=== PATIENT | female | born 1990 | race Caucasian/White ===

== ENCOUNTER → 2016-05-03 | Outpatient (CLI) | payer MEDICAID ==
[2016-05-03 13:24] LABS: BASO % 0.4 % (0.0-1.0); EOS # 0.1 K/mm3 (0.0-0.50); EOS % 1.9 % (0.0-3.0); LARGE UNSTAINED CELL # 0.1 K/mm3 (0.0-0.4); LARGE UNSTAINED CELL % 0.8 % (0.0-4.0); LYMPH # 1.3 K/mm3 (1.5-6.5); LYMPH % 18.9 % (24.0-44.0); MEAN CORPUSCULAR HEMOGLOBIN 29.5 pg (27.0-33.0); MEAN CORPUSCULAR HGB CONC 33.1 g/dl (32.0-36.5); MEAN CORPUSCULAR VOLUME 89.1 fl (80.0-96.0); MONO # 0.3 K/mm3 (0.0-0.8); MONO % 4.7 % (0.0-5.0); NEUTROPHILS % 73.3 % (36.0-66.0); PLATELET COUNT, AUTOMATED 197 k/mm3 (150-450); RED CELL DISTRIBUTION WIDTH 12.4 % (11.5-14.5); WHITE BLOOD COUNT 6.9 K/mm3 (4.0-10.0)
[2016-05-03 13:50] LABS: HBsAg Prenatal NEGATIVE (NEGATIVE)
[2016-05-03 14:16] LABS: CONTROL LINE INT CTR LINE PRESENT; HIV SCRN NEGATIVE (NEGATIVE); HIV SCRN1 NEGATIVE (NEGATIVE)
== END ==
LOC: M SMT 11:00
PROVIDERS: ATTEND Advanced Practice Midwife
DX: Z34.81 Encounter for supervision of other normal pregnancy, first trimester (principal)

== ENCOUNTER → 2016-07-25 | Outpatient (CLI) | payer MEDICAID ==
--- NOTE | 2016-07-25 18:39 | REP ---
Obstetric sonography: History: Supervision of for anatomy. Findings: Scanning through the gravid uterus demonstrates a viable single intrauterine gestation in a cephalic lie. motion is observed and heart rate is recorded at 144 beats per minute. A right lateral placenta is seen grade zero without evidence of previa or abruption. Amniotic fluid is subjectively normal. Closed cervical length is measured at 3.3 cm transabdominally. No extrauterine abnormality is observed. There is mild bilateral renal pyelectasis, AP dimension of the renal pelves 1-2 mm, within normal limits. There is less than optimal visualization of the cavum, cerebellum posterior fossa, face and profile, left and right ventricular outflow tracts and spine due to position. There is an echogenic focus in the left ventricle likely chordae tendineae. Four-chamber heart view is otherwise unremarkable. The following additional anatomic structures are identified and felt to be unremarkable today: cranium, choroid plexus, lungs, diaphragm, left-sided stomach, abdominal wall cord insertion, three-vessel umbilical cord, urinary bladder, upper and lower extremities. Biometry chart: BPD 4.5 cm = 19 weeks 5 days Head circumference 16.8 cm = 19 weeks 3 days Abdominal circumference 14.1 cm = 19 weeks 4 days Femur length 3.1 cm = 19 weeks 4 days Humeral length 2.9 cm = 19 weeks 4 days HC/AC ratio normal 1.19, cephalic index normal 0.75, estimated weight 297 grams 0 pounds 10 ounces 52nd percentile for 19 weeks 2 days. Impression: 1. Viable single intrauterine gestation of 19 weeks 2 days by today's composite sonographic criteria. GALLITO by today's sonography 12/17/2016. 2. anatomic survey less than complete regarding heart, face, cerebellum posterior fossa, and spine. Signed by Popeye Duran MD 07/26/2016 08:06 A
== END ==
LOC: M SMT 13:56
PROVIDERS: ATTEND Advanced Practice Midwife
DX: Z36 Encounter for antenatal screening of mother (principal); Z3A.19 19 weeks gestation of pregnancy

== ENCOUNTER → 2016-09-12 | Outpatient (CLI) | payer OTHER ==
--- NOTE | 2016-09-12 15:46 | REP ---
Obstetric ultrasound for anatomy: There is a single intrauterine gestation in a breech presentation. There is movement and cardiac activity. heart rate is 141 beats per minute. The placenta is right lateral without previa or abruptio and demonstrates grade 1 maturity. The amniotic fluid volume subjectively is normal. The cervix is 4.6 cm in length. Based on today's ultrasound the gestational age 25 weeks 3 days with an GALLITO of 12/23/2016. Based on the first ultrasound during this gestation the gestational age is 26 weeks 2 days. weight is 192 grams (1 pound, 15 ounces). This is the 34th percentile for 26 weeks 2 days. The following anatomic structures are identified and are unremarkable: Cranium, choroid plexus, cavum septum pellucidum, cerebellum, cisterna magna, facial profile, lungs, four-chamber heart, cardiac right and left ventricular outflow tracts, diaphragm, stomach, cord insertion, three-vessel cord, kidneys, bladder and upper lower extremities. Suboptimally demonstrated is the lumbar spine because of position. Otherwise, there are no anomalies. Signed by Carlos Colindres MD 09/12/2016 02:06 P
== END ==
LOC: M SMT 12:58
PROVIDERS: ATTEND Advanced Practice Midwife
DX: Z34.82 Encounter for supervision of other normal pregnancy, second trimester (principal)

== ENCOUNTER → 2016-10-13 | Outpatient (CLI) | payer OTHER ==
[~2016-10-13] MED LIST: ACET50TA PO; IBUP-1114 PO; PRENTAB9 PO
[2016-10-13 17:14] LABS: BASO % 0.3 % (0.0-1.0); EOS # 0.2 K/mm3 (0.0-0.50); LARGE UNSTAINED CELL # 0.1 K/mm3 (0.0-0.4); LARGE UNSTAINED CELL % 1.2 % (0.0-4.0); LYMPH # 1.6 K/mm3 (1.5-6.5); MEAN CORPUSCULAR HEMOGLOBIN 30.4 pg (27.0-33.0); MEAN CORPUSCULAR HGB CONC 33.3 g/dl (32.0-36.5); MEAN CORPUSCULAR VOLUME 91.3 fl (80.0-96.0); MONO # 0.5 K/mm3 (0.0-0.8); NEUTROPHILS # 8.2 K/mm3 (1.8-7.7); NEUTROPHILS % 76.4 % (36.0-66.0); PLATELET COUNT, AUTOMATED 246 k/mm3 (150-450); RED CELL DISTRIBUTION WIDTH 12.6 % (11.5-14.5); WHITE BLOOD COUNT 10.7 K/mm3 (4.0-10.0)
== END ==
LOC: M WUC 13:38
PROVIDERS: ATTEND Advanced Practice Midwife
DX: Z34.83 Encounter for supervision of other normal pregnancy, third trimester (principal)

== ENCOUNTER → 2016-11-03 | Outpatient (CLI) | payer OTHER ==
--- NOTE | 2016-11-03 15:29 | REP ---
OB ULTRASOUND: Real-time sonographic evaluation of the gravid uterus is performed. There is a single living intrauterine gestation. The estimated gestational age is 33 weeks 5 days with EDC 12/17/2016. Today's measurements indicate appropriate growth. Biometry and Growth: BPD 82 mm = 32 weeks 0 days, 39th percentile HC 306 mm = 34 weeks 1 day, 54th percentile AC 306 mm = 34 weeks 4 days, 62nd percentile FL 67 mm = 34 weeks 4 days, 61st percentile HC/AC ratio 1.0 within normal range. Estimated weight 2408 grams 56th percentile. Visualized anatomy today includes the stomach, kidneys, bladder and spine, which are all grossly unremarkable. Cervical length: heart rate: 147 beats per minute. position: Vertex. Placenta: Posterior and grade 2 with no previa or abruption. Amniotic fluid: Within normal limits, MUNIRA 11.9 within normal range of 8.1 to 24.7. S/D ratio 2.73 within normal range. RI 0.65 within normal range. Signed by Carlos Linder MD 11/03/2016 04:47 P
== END ==
LOC: M SMT 14:05
PROVIDERS: ATTEND Advanced Practice Midwife
DX: Z36 Encounter for antenatal screening of mother (principal); Z3A.33 33 weeks gestation of pregnancy

== ENCOUNTER 2016-11-14 11:47 | Outpatient (CLI) | payer OTHER ==
[~2016-11-14] VITALS: Ht 172.1 cm; Wt 80.0 kg
[2016-11-14 12:03] VITALS: BP 120/76
[2016-11-14] MEDS ORDERED: PRENTAB9 PO (12:47)
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
== END 2016-11-14 13:30 | disposition home or self-care (01) ==
LOC: M LDO 11:47
PROVIDERS: ATTEND Advanced Practice Midwife
DX: O26.893 Other specified pregnancy related conditions, third trimester (principal); O62.0 Primary inadequate contractions; Z3A.35 35 weeks gestation of pregnancy

== ENCOUNTER 2016-12-10 00:22 | Inpatient (IN) | payer OTHER ==
[2016-12-10] VITALS (17 sets, daily range): BP systolic 97–145; BP diastolic 50–79
[~2016-12-10] VITALS: Ht 170.2 cm; Wt 87.4 kg
[~2016-12-10 00:22] MED LIST changes: -ACET50TA PO; -IBUP-1114 PO
[2016-12-10 01:35] LABS: MEAN CORPUSCULAR HEMOGLOBIN 30.2 pg (27.0-33.0); MEAN CORPUSCULAR HGB CONC 34.9 g/dl (32.0-36.5); MEAN CORPUSCULAR VOLUME 86.7 fl (80.0-96.0); RED CELL DISTRIBUTION WIDTH 12.7 % (11.5-14.5); WHITE BLOOD COUNT 10.1 K/mm3 (4.0-10.0)
[2016-12-10] MEDS ORDERED: OXYTOCIN DRIP 30 UNITS in APPROPRIATE DILUENT 1 EA IV SCH (05:30)
[2016-12-10] MEDS ORDERED: LR 1,000 ML IV SCH (05:30)
[2016-12-10] MEDS ORDERED: OXYTOCIN 30 UNITS IN 0.9% NaCl 500ML IV BAG (J2590) As Ordered ONE (05:33)
[2016-12-10] MEDS ORDERED: BUTORPHANOL 2 MG/ML INJ (J0595) IV ONE (05:45)
[2016-12-10] MEDS ORDERED: PROMETHAZINE INJ 25 MG/ML VIAL (J2550) IV ONE (05:45)
[2016-12-10] MEDS: PRENATAL VITAMINS CHEWABLE TABLET PO SCH (09:00)
[2016-12-10] MEDS ORDERED: OXYTOCIN INJ 10 UNITS/ML VIAL (J2590) As Ordered ONE (10:44)
[2016-12-10] MEDS ORDERED: OXYTOCIN INJ 10 UNITS/ML VIAL (J2590) IM ONE (11:00)
[2016-12-10] MEDS ORDERED: MEASLES,MUMPS,RUBELLA VACCINE INJ (MMR-II) (90707) SC SCH (11:00)
[2016-12-10] MEDS ORDERED: DIBUCAINE 1% OINTMENT 30GM TOP PRN (11:00)
[2016-12-10] MEDS ORDERED: ANUSOL HC CREAM 30GM TOP PRN (11:00)
[2016-12-10] MEDS ORDERED: RHOGAM 300 MCG (1500 IU) INJ (J2790) IM SCH (11:00)
[2016-12-10] MEDS ORDERED: METHYLERGONOVINE MALEATE 0.2 MG TAB PO PRN (11:00)
[2016-12-10] MEDS ORDERED: DOCUSATE SODIUM 100 MG CAP PO PRN (11:00)
[2016-12-10] MEDS ORDERED: ACETAMINOPHEN 500 MG TAB PO PRN (11:00)
--- NOTE | 2016-12-10 15:08 | DN ---
DATE: 12/10/2016 Phuong is a 26-year-old 4, para 2-0-2-2 now who was admitted to labor and delivery with spontaneous rupture of membranes. IV Pitocin was started and labor ensued. She did utilize some IV pain medications for her labor coping. She progressed to full dilation at 1010 hours. She pushed to a normal spontaneous vaginal delivery of a live female in occiput anterior (OA) position with restitution to left occiput transverse (LOT) position at 1019 hours. There was no nuchal cord. The shoulders delivered with gentle downward traction and corpus immediately followed. The was placed on the maternal abdomen, crying and active. Her mouth and nares were bulb suctioned, and she was dried and stimulated. The cord was clamped times two and cut by the father of the baby. A spontaneous expulsion of an intact placenta with three-vessel cord by Schultze mechanism was at 1028 hours. Uterine hemostasis achieved with Pitocin 10 units intramuscularly (IM) and uterine fundal massage. Estimated blood loss 350 mL. Perineum and vagina were inspected, noted to have superior urethral abrasions. They were hemostatic and no need for any repair. [place] female weighed 3140 grams, 6 pounds 15 ounces, score 9 and 9. Family have named their daughter Cecille Copeland, and the mom plans to bottle feed. At the close of delivery, lap counts and instrument counts were correct and verified.
[2016-12-10] MEDS: IBUPROFEN 800 MG TAB PO PRN (16:17)
[2016-12-11 05:40] VITALS: BP 109/63
[2016-12-11] MEDS: PRENATAL VITAMINS CHEWABLE TABLET PO SCH (08:58)
[2016-12-11] MEDS: IBUPROFEN 800 MG TAB PO PRN (13:41)
[2016-12-11 17:36] VITALS: BP 113/67
[2016-12-12] MEDS: IBUPROFEN 800 MG TAB PO PRN (00:28)
[2016-12-12 05:52] VITALS: BP 110/71
[2016-12-12] MEDS ORDERED: ACET50TA PO (08:49)
[2016-12-12] MEDS ORDERED: IBUP-1114 PO (08:49)
[2016-12-12] MEDS: PRENATAL VITAMINS CHEWABLE TABLET PO SCH (09:08)
== END 2016-12-12 10:35 | disposition home or self-care (01) | DRG 560 ==
LOC: M LDO 00:22 → M LDI 00:50 → M OBS 13:14
PROVIDERS: ADMIT Advanced Practice Midwife; ATTEND Advanced Practice Midwife
PROC: 10E0XZZ Delivery of Products of Conception, External Approach (ICD-10-PCS; principal; 2016-12-10)
DX: O80 Encounter for full-term uncomplicated delivery (principal); Z37.0 Single live birth; Z3A.39 39 weeks gestation of pregnancy

== ENCOUNTER 2017-07-17 14:52 | Emergency (ER) | payer MEDICAID, SELFPAY, OTHER ==
[2017-07-17] MEDS: CYCLOBENZAPRINE 10 MG TAB PO ×2 (17:15)
[2017-07-17] MEDS: KETOROLAC TROMETHAMINE 10 MG TAB PO ×2 (17:15)
== END 2017-07-17 18:30 | disposition home or self-care (01) ==
LOC: M ED 14:52
DX: M54.2 Cervicalgia (principal); S10.93XA Contusion of unspecified part of neck, initial encounter; S00.83XA Contusion of other part of head, initial encounter; S30.0XXA Contusion of lower back and pelvis, initial encounter; Y04.8XXA Assault by other bodily force, initial encounter; Y92.89 Other specified places as the place of occurrence of the external cause; F33.9 Major depressive disorder, recurrent, unspecified; F41.9 Anxiety disorder, unspecified; F17.200 Nicotine dependence, unspecified, uncomplicated
CPT/HCPCS: 70490

== ENCOUNTER 2018-05-25 08:32 | Emergency (ER) | payer MEDICAID, OTHER ==
[~2018-05-25] VITALS: Ht 170.2 cm; Wt 82.7 kg
[~2018-05-25 08:32] MED LIST changes: +CYCL5TAB PO; +IBUP-1114 PO; +KETO10TAB PO; +MAGICMW SS; +MAPA500T2 PO
[2018-05-25] MEDS ORDERED: ONDA4TAB6 (08:37)
[2018-05-25] MEDS ORDERED: AMOX875T PO (08:37)
[2018-05-25 09:24] LABS: HEMATOCRIT 36.8 % (36.0-47.0); HEMOGLOBIN 12.7 g/dl (12.0-15.5); MEAN CORPUSCULAR HEMOGLOBIN 28.4 pg (27.0-33.0); MEAN CORPUSCULAR HGB CONC 34.5 g/dl (32.0-36.5); MEAN CORPUSCULAR VOLUME 82.3 fl (80.0-96.0); PLATELET COUNT, AUTOMATED 156 10^3/uL (150-450); RED BLOOD COUNT 4.47 10^6/uL (4.00-5.40)
[2018-05-25 10:16] LABS: ANISOCYTOSIS 1+; ATYPICAL LYMPH 3 % (0-5); EOSINOPHILS 2 % (0-5); LYMPHOCYTES 35 % (16-52); MONOCYTES 3 % (0-8); NEUTROPHILS 57 % (35-75); PLATELET ESTIMATE NORMAL (NORMAL)
--- NOTE | 2018-05-25 12:13 | REP ---
Obstetric ultrasound for vaginal bleeding: The studies performed with transabdominal imaging. Patient declined endovaginal imaging There is a single intrauterine gestation. The placenta is posterior. There is a subchorionic hematoma in the lower uterine segment measuring 1.6 x 2.0 x 6.4 cm. There is questionably a small placental abruptio at the inferior tip of the placenta, however, the patient declined endovaginal imaging for further elucidation of this finding. heart rate is 152 beats per minute. There is no measurement of cervical length. Based on today's ultrasound gestational age is 13 weeks 5 days/GALLITO 11/25/2018. By LMP gestational age is 13 weeks on a/GALLITO 11/29/2018. weight is 80 grams/0 pounds, 2 ounces. This is the 62nd percentile for 13 weeks 1 day. Impression: Posterior placenta. Subchorionic hematoma measuring 1.6 x 2.0 x 6.4 cm. Questionable abruptio at the inferior tip of the placenta. The patient declined endovaginal imaging for further elucidation of this finding. Electronically Signed by Carlos Colindres MD 05/25/2018 12:05 P
[2018-05-25 12:38] VITALS: BP 115/59
== END 2018-05-25 12:42 | disposition home or self-care (01) ==
LOC: M ED 08:32
DX: O20.8 Other hemorrhage in early pregnancy (principal); O09.891 Supervision of other high risk pregnancies, first trimester; O99.511 Diseases of the respiratory system complicating pregnancy, first trimester; J45.909 Unspecified asthma, uncomplicated; O99.341 Other mental disorders complicating pregnancy, first trimester; F33.9 Major depressive disorder, recurrent, unspecified; F41.9 Anxiety disorder, unspecified; O99.331 Smoking (tobacco) complicating pregnancy, first trimester; F17.200 Nicotine dependence, unspecified, uncomplicated; Z3A.13 13 weeks gestation of pregnancy

== ENCOUNTER → 2018-06-14 | Outpatient (CLI) | payer OTHER ==
[~2018-06-14] MED LIST changes: +AMOX875T PO; +ONDA4TAB6
[2018-06-14 17:38] LABS: BASO % 0.2 % (0.0-1.0); EOS # 0.1 10^3/uL (0.0-0.50); EOS % 1.5 % (0.0-3.0); HEMATOCRIT 35.3 % (36.0-47.0); HEMOGLOBIN 11.9 g/dl (12.0-15.5); LYMPH # 1.6 10^3/uL (1.5-6.5); LYMPH % 19.7 % (24.0-44.0); MEAN CORPUSCULAR HEMOGLOBIN 28.7 pg (27.0-33.0); MEAN CORPUSCULAR HGB CONC 33.7 g/dl (32.0-36.5); MEAN CORPUSCULAR VOLUME 85.3 fl (80.0-96.0); MONO # 0.5 10^3/uL (0.0-0.8); NEUTROPHILS # 5.9 10^3/uL (1.8-7.7); PLATELET COUNT, AUTOMATED 240 10^3/uL (150-450); RED BLOOD COUNT 4.14 10^6/uL (4.00-5.40); WHITE BLOOD COUNT 8.2 10^3/uL (4.0-10.0)
[2018-06-14 19:05] LABS: CHLAMYDIA DNA AMPLIFICATION NEGATIVE (NEGATIVE); GC DNA AMPLIFICATION NEGATIVE (NEGATIVE)
[2018-06-17 09:39] LABS: HEPATITIS C VIRUS ABY INDEX 0.1 INDEX (<0.8); HIV 1&2 SCREEN CENTAUR NEGATIVE (NEGATIVE); RUBELLA IgG QUALITATIVE IMMUNE (IMMUNE)
== END ==
LOC: M SMT 12:55
PROVIDERS: ATTEND Advanced Practice Midwife
DX: Z34.81 Encounter for supervision of other normal pregnancy, first trimester (principal); Z36.89 Encounter for other specified antenatal screening; Z3A.08 8 weeks gestation of pregnancy

== ENCOUNTER → 2018-07-05 | Outpatient (CLI) | payer OTHER ==
--- NOTE | 2018-07-05 15:44 | REP ---
Stature sonography: History: Supervision of for anatomy. Findings: Scanning through the gravid uterus demonstrates a viable single intrauterine gestation in a variable lie. motion is observed and heart rate is recorded at 138 beats per minute. A posterior fundal placenta is seen grade zero without evidence of previa. Amniotic fluid is subjectively normal. Closed cervical length is measured is 3.2 cm viewed transabdominally. No extrauterine abnormalities observed. There has been appropriate interval growth. Umbilical see cord is seen draping across the neck. The previously noted subchorionic hematoma is no longer apparent. No anomaly is seen. The following anatomic structures are identified and felt to be sonographically unremarkable: cranium, choroid plexus, cavum, cerebellum posterior fossa, face and profile, lungs, four-chamber heart with left and right ventricular outflow tract views, diaphragm, left-sided stomach, abdominal wall cord insertion, three-vessel cord, kidneys and bladder, spine, upper and lower extremities. Biometry chart: BPD 4.3 cm 19 weeks 0 days head circumference 16.4 cm 19 weeks 1 day abdominal circumference 13.4 cm 18 weeks 6 days femur length 3.0 cm 90 weeks 1 day humeral length 2.8 cm 19 weeks 1 day HC/AC ratio normal 1.22 cephalic index normal 0.73 estimated weight 267 grams, 0 pounds 9 ounces, 46 percentile for 19 weeks 0 days. Impression: Viable single intrauterine gestation at 19 weeks 0 days by today's composite sonographic criteria. Expected gestational age estimate based on prior sonography is 19 weeks 4 days. GALLITO by prior sonography November 25, 2018. anatomic survey is felt to be complete. Electronically Signed by Popeye Duran MD 07/05/2018 03:36 P
== END ==
LOC: M RAD 14:14
PROVIDERS: ATTEND Advanced Practice Midwife
DX: Z34.80 Encounter for supervision of other normal pregnancy, unspecified trimester (principal); Z3A.19 19 weeks gestation of pregnancy

== ENCOUNTER 2018-09-02 21:38 | Outpatient (CLI) | payer OTHER ==
[~2018-09-02] VITALS: Ht 170.2 cm; Wt 82.0 kg
[2018-09-02 21:56] VITALS: BP 120/62
[2018-09-02] MEDS ORDERED: PRENTAB9 PO (22:51)
[2018-09-02] MEDS ORDERED: MAPA500T2 PO (22:52)
[2018-09-02 23:15] VITALS: BP 125/63
--- NOTE | 2018-09-02 23:43 | IPNPDOC ---
Text Note Date of Service The patient was seen on 09/02/18. NOTE Subjective: Patient is a 28-year-old female who is a at 27.3 weeks gestation with an GALLITO of 11/29/18. Her has been complicated by asthma and smoking. She presents to L&D with complaints of feeling sick at 1445, clammy, shaky, and reports vomiting x2. She was concerned an "thought I should be checked out." She reports she is no longer nauseous and has not vomited. She denies vaginal bleeding, leaking of fluid or contractions. She reports active movement. She desires an excuse note. She reports she has eaten a lot today but after a food recall she has eaten lots of carbohydrates and rarely a protein. She had a Mc[employer] sandwich with some protein and a cheese stick today and the rest were carbohydrates. She reports she feels better but was concerned. Objective: VS: see labs. FHR: 125, moderate variability, positive accelerations, no decelerations. Contractions: none. A+O x3; Respiratory: regular rate and no use of accessory muscles; Abdomen: gravid and non-tender to touch. Assessment: IUP at 27 weeks 3 days gestation, not in labor, Category I FHR tracing Plan: Reviewed access to care, decreased movement, labor signs, leaking of fluid, vaginal bleeding, and danger signs to report. She is to follow-up with her routine care. She has an appointment on September 17. VS,Steve, I+O VS, Steve, I+O Vital Signs Date Time Temp Pulse Resp B/P (MAP) Pulse Ox O2 Delivery O2 Flow Rate FiO2 09/02/18 21:56 98.3 75 120/62 (81) SUYAPA FREEMAN CNM Sep 02, 2018 23:43
== END 2018-09-02 23:25 | disposition home or self-care (01) ==
LOC: M LDO 21:38
PROVIDERS: ATTEND Advanced Practice Midwife
DX: O26.893 Other specified pregnancy related conditions, third trimester (principal); R51 Headache; O21.2 Late vomiting of pregnancy; Z3A.27 27 weeks gestation of pregnancy

== ENCOUNTER → 2018-10-02 | Outpatient (CLI) | payer OTHER ==
[2018-10-02 14:44] LABS: HEMOGLOBIN 11.1 g/dl (12.0-15.5); MEAN CORPUSCULAR HEMOGLOBIN 29.3 pg (27.0-33.0); MEAN CORPUSCULAR HGB CONC 33.6 g/dl (32.0-36.5); MEAN CORPUSCULAR VOLUME 87.1 fl (80.0-96.0); PLATELET COUNT, AUTOMATED 249 10^3/uL (150-450); RED BLOOD COUNT 3.79 10^6/uL (4.00-5.40); WHITE BLOOD COUNT 9.5 10^3/uL (4.0-10.0)
== END ==
LOC: M LAB 13:41
PROVIDERS: ATTEND Advanced Practice Midwife
DX: O99.332 Smoking (tobacco) complicating pregnancy, second trimester (principal)

== ENCOUNTER → 2018-10-29 | Outpatient (REF) | payer OTHER ==
[~2018-10-29] MED LIST changes: +OXYC1TAB23 PO
== END ==
LOC: M LAB REF 17:49
PROVIDERS: ATTEND Advanced Practice Midwife
DX: O99.333 Smoking (tobacco) complicating pregnancy, third trimester (principal)

== ENCOUNTER 2018-11-28 16:35 | Inpatient (IN) | payer OTHER ==
[~2018-11-28] VITALS: Ht 170.2 cm; Wt 88.3 kg
[~2018-11-28 16:35] MED LIST changes: -OXYC1TAB23 PO
[2018-11-28 16:49] VITALS: BP 115/72
[2018-11-28] MEDS ORDERED: PENICILLIN G POTASSIUM IV 5 MU in D5W MINI-BAG PLUS 100 ML IV STA (17:11)
[2018-11-28] MEDS ORDERED: miSOPROStol 50 MCG 1/2 TAB (S0191) PO SCH (17:15)
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
[2018-11-28 17:46] LABS: HEMATOCRIT 33.1 % (36.0-47.0); MEAN CORPUSCULAR HEMOGLOBIN 28.6 pg (27.0-33.0); MEAN CORPUSCULAR HGB CONC 33.2 g/dl (32.0-36.5); PLATELET COUNT, AUTOMATED 300 10^3/uL (150-450); RED BLOOD COUNT 3.85 10^6/uL (4.00-5.40); WHITE BLOOD COUNT 8.4 10^3/uL (4.0-10.0)
[2018-11-28] MEDS ORDERED: OXYTOCIN 30 UNITS IN 0.9% NaCl 500ML IV BAG (J2590) As Ordered ONE (21:47)
[2018-11-28] MEDS ORDERED: OXYTOCIN DRIP 30 UNITS in APPROPRIATE DILUENT 1 EA IV SCH (22:00)
[2018-11-28] MEDS: LR 1,000 ML IV SCH (22:11)
[2018-11-28] MEDS: PENICILLIN G POTASSIUM IV 2.5 MU in APPROPRIATE DILUENT 1 EA IV SCH (22:25)
[2018-11-29] MEDS ORDERED: FENTANYL 2MCG/ML ROPIVACAINE 0.2% IN 0.9% NACL 100ML IVBAG As Ordered ONE (00:07)
[2018-11-29] MEDS: LR 1,000 ML IV SCH (00:20)
[2018-11-29] MEDS ORDERED: FENTANYL/ROPIVACAINE/NACL BAG 100 ML EPIDURAL SCH (00:45)
[2018-11-29] MEDS ORDERED: EPIDURAL/PCA KEYS XX PRN (00:45)
[2018-11-29] MEDS ORDERED: NALOXONE INJ 0.4 MG/1 ML VIAL (J2310) IV PRN (00:45)
[2018-11-29] MEDS ORDERED: EPIDURAL COMMENT XX SCH (00:45)
[2018-11-29] MEDS ORDERED: REFRIGERATOR IV KEYS XX PRN (00:45)
[2018-11-29] MEDS ORDERED: diphenhydrAMINE INJ 50MG/ML VIAL (J1200) IV PRN (00:45)
[2018-11-29] MEDS ORDERED: ONDANSETRON 4MG/2ML VIAL (J2405) IV PRN (00:45)
[2018-11-29] MEDS: LACTATED RINGER'S 1000 ML IV PRN ×2 (01:23→04:03)
[2018-11-29] MEDS: PENICILLIN G POTASSIUM IV 2.5 MU in APPROPRIATE DILUENT 1 EA IV SCH (01:43)
[2018-11-29] MEDS: ePHEDrine SULFATE 25 MG/5 ML(5MG/ML) SYRINGE IV PRN ×2 (03:54→04:00)
[2018-11-29] MEDS ORDERED: OXYTOCIN DRIP 30 UNITS in APPROPRIATE DILUENT 1 EA IV SCH (05:40)
[2018-11-29] MEDS ORDERED: ACETAMINOPHEN TAB 650MG DOSE (2X325MG) PO PRN (05:45)
[2018-11-29] MEDS ORDERED: DIBUCAINE 1% OINTMENT 30GM TOP PRN (05:45)
[2018-11-29] MEDS ORDERED: IBUPROFEN 600 MG TAB PO PRN (05:45)
[2018-11-29] MEDS ORDERED: RHOGAM 300 MCG (1500 IU) INJ (J2790) IM SCH (05:45)
[2018-11-29] MEDS ORDERED: MOM 30ML SUSPENSION UDC PO PRN (05:45)
[2018-11-29] MEDS ORDERED: ANUSOL HC CREAM 30GM TOP PRN (05:45)
[2018-11-29] MEDS ORDERED: DOCUSATE SODIUM 100 MG CAP PO PRN (05:45)
[2018-11-29] MEDS ORDERED: MEASLES,MUMPS,RUBELLA VACCINE INJ (MMR-II) (90707) SC SCH (05:45)
[2018-11-29] MEDS ORDERED: METHYLERGONOVINE MALEATE 0.2 MG TAB PO PRN (05:45)
[2018-11-29] MEDS ORDERED: IBUPROFEN 800 MG TAB PO PRN (05:45)
--- NOTE | 2018-11-29 06:40 | DN ---
DATE OF PROCEDURE: 11/29/2018 TIME OF : 05 GENDER: Male APGARS: 9 and 10 WEIGHT: 7 pounds 3 ounces or 3270 grams ANESTHESIA: Epidural. LACERATIONS: None. ESTIMATED BLOOD LOSS: 300 mL. COUNTS: Five laparotomy sponges accounted for prior to and after delivery. DELIVERY NOTE: On 11/29/2018 at 0516, Ms. Vega, a 28-year-old, 5, now para 3 had a spontaneous vaginal delivery of a live born male , Apgars 9 and 10, weight was 3270 grams or 7 pounds 3 ounces. Head was delivered occiput anterior (OA) over an intact perineum. This was followed by delivery of the left anterior shoulder, right posterior shoulder and corpus. The infant was then handed to mom with a good cry. Cord was clamped times two and was cut by the father of baby under my direction. Placenta was then drained and delivered grossly intact. A premixed bag of 500 mL of normal saline with 30 units of Pitocin was then bolused along with uterine massage until the uterus was firm. On inspection, the cervix, vagina and perineum was grossly intact and hemostatic. Mom and baby in recovery in stable condition. The couple has decided to name their son, Germán Bal.
[2018-11-29 07:01] VITALS: BP 98/56
[2018-11-29 08:42] VITALS: BP 107/58
[2018-11-29] MEDS: PRENATAL VITAMINS CHEWABLE TABLET PO SCH (09:42)
[2018-11-29] MEDS: ACETAMINOPHEN 500 MG TAB PO PRN (14:09)
[2018-11-29 17:58] VITALS: BP 113/63
[2018-11-30] MEDS: ACETAMINOPHEN 500 MG TAB PO PRN (01:36)
[2018-11-30 05:46] VITALS: BP 111/60
[2018-11-30] MEDS: PRENATAL VITAMINS CHEWABLE TABLET PO SCH (07:31)
== END 2018-11-30 16:50 | disposition home or self-care (01) | DRG 560 ==
LOC: M LDI 16:35 → M OBS 11-29 08:31
PROVIDERS: ADMIT Obstetrics & Gynecology; ATTEND Obstetrics & Gynecology
PROC: 10E0XZZ Delivery of Products of Conception, External Approach (ICD-10-PCS; principal; 2018-11-29)
PROC: 3E0DXGC Introduction of Other Therapeutic Substance into Mouth and Pharynx, External Approach (ICD-10-PCS; 2018-11-29)
DX: O99.334 Smoking (tobacco) complicating childbirth (principal); F17.200 Nicotine dependence, unspecified, uncomplicated; Z37.0 Single live birth; Z3A.39 39 weeks gestation of pregnancy; O99.820 Streptococcus B carrier state complicating pregnancy

== ENCOUNTER 2019-01-27 10:28 | Day surgery (SDC) | payer OTHER ==
[~2019-01-27] VITALS: Ht 170.2 cm; Wt 81.8 kg
[~2019-01-27 10:28] MED LIST changes: +LIDOCAINE 2% INJ 100 MG/5 ML SDV (FOR ANES.) As Ordered ONE; +LR 1,000 ML IV ONE; +ONDANSETRON 4MG/2ML VIAL (J2405) As Ordered ONE; +PROPOFOL 200 MG/20 ML VIAL As Ordered ONE; +ROCURONIUM BROMIDE 50 MG/5 ML VIAL As Ordered ONE; +dexameTHASONE 4 MG/ML 1ML VIAL (J1100) As Ordered ONE
[2019-01-27 10:50] LABS: HEMATOCRIT 38.9 % (36.0-47.0); HEMOGLOBIN 12.4 g/dl (12.0-15.5); MEAN CORPUSCULAR HEMOGLOBIN 26.7 pg (27.0-33.0); MEAN CORPUSCULAR HGB CONC 31.9 g/dl (32.0-36.5); MEAN CORPUSCULAR VOLUME 83.8 fl (80.0-96.0); PLATELET COUNT, AUTOMATED 221 10^3/uL (150-450); RED BLOOD COUNT 4.64 10^6/uL (4.00-5.40)
[2019-01-27] MEDS ORDERED: PROPOFOL 200 MG/20 ML VIAL As Ordered ONE (11:10)
[2019-01-27] MEDS ORDERED: dexameTHASONE 4 MG/ML 1ML VIAL (J1100) As Ordered ONE (11:10)
[2019-01-27] MEDS ORDERED: ROCURONIUM BROMIDE 50 MG/5 ML VIAL As Ordered ONE (11:10)
[2019-01-27] MEDS ORDERED: KETOROLAC 60 MG/2 ML VIAL (J1885) As Ordered ONE (11:10)
[2019-01-27] MEDS ORDERED: LIDOCAINE 2% INJ 100 MG/5 ML SDV (FOR ANES.) As Ordered ONE (11:10)
[2019-01-27] MEDS ORDERED: BUPIVACAINE HCL 0.25% 30 ML VIAL As Ordered ONE (11:11)
[2019-01-27] MEDS ORDERED: ONDANSETRON 4MG/2ML VIAL (J2405) As Ordered ONE (11:11)
[2019-01-27] MEDS ORDERED: MIDAZOLAM INJ 2 MG/2 ML VIAL (J2250) As Ordered ONE (11:11)
[2019-01-27] MEDS ORDERED: fentaNYL 100 MCG/2 ML INJECTION (J3010) As Ordered ONE ×2 (11:12→12:03)
[2019-01-27] MEDS ORDERED: SUGAMMADEX SODIUM 500 MG/5 ML VIAL (BRIDION) As Ordered ONE (12:06)
[2019-01-27] MEDS ORDERED: OXYC1TAB23 PO (12:20)
[2019-01-27] MEDS ORDERED: PERCOCET 5MG/325MG TAB As Ordered ONE (12:30)
--- NOTE | 2019-01-27 12:39 | RO ---
DATE OF OPERATION: 01/27/2019 PREOPERATIVE DIAGNOSIS: Undesired fertility. POSTOPERATIVE DIAGNOSIS: Undesired fertility. PROCEDURE: Laparoscopic bilateral salpingectomy. SURGEON: Pablo Espinoza MD CONSUMER INSIGHT MANAGER: ANESTHESIA: General endotracheal. ESTIMATED BLOOD LOSS: 10 mL. URINE OUTPUT: 150 mL. FINDINGS: Normal pelvis. Normal upper abdomen. OPERATIVE SUMMARY: The patient was taken to the operating room where general endotracheal anesthesia was induced. She was prepped and draped in sterile fashion in the dorsal lithotomy position. A Wolf catheter was placed. A sponge stick was used in the vagina as a manipulator. A periumbilical incision was made with the scalpel. A Veress needle was placed through this incision. While tenting up on the skin of the abdomen intraabdominal locations assessed with the use a saline filled syringe. A pneumoperitoneum was created. A 5 mm scope using MascotaNube was inserted through this incision. A 5 and 8 mm suprapubic port were placed under direct visualization without difficulty. Grasping instruments were used to elevate the fallopian tubes. broad ligament attachments to the fallopian tube were coagulated and incised with a LigaSure device. Fallopian tubes were amputated near their origin. Fallopian tubes were removed through the suprapubic port. Pneumoperitoneum was released. All instruments were removed. The skin was closed with #4-0 Monocryl subcuticular sutures. Sponge, instrument, and needle counts were correct.
[2019-01-27] MEDS ORDERED: LR 1,000 ML IV SCH (12:45)
[2019-01-27] MEDS ORDERED: fentaNYL 100 MCG/2 ML INJECTION (J3010) IV PRN (12:45)
[2019-01-27] MEDS ORDERED: PERCOCET 5MG/325MG TAB PO PRN ×2 (12:45)
[2019-01-27] MEDS ORDERED: KETOROLAC 30 MG/ML VIAL (J1885) IV PRN (12:45)
[2019-01-27] MEDS ORDERED: METOCLOPRAMIDE INJ 10MG/2ML VIAL (J2765) IV PRN (12:45)
[2019-01-27] MEDS ORDERED: ONDANSETRON 4MG/2ML VIAL (J2405) IV PRN (12:45)
[2019-01-27 13:25] VITALS: BP 107/61
== END 2019-01-27 13:42 | disposition home or self-care (01) ==
LOC: M SDC 10:28
PROVIDERS: ATTEND Specialist
DX: Z30.2 Encounter for sterilization (principal); F17.218 Nicotine dependence, cigarettes, with other nicotine-induced disorders
CPT/HCPCS: 36415; 58661; 81025; 85027; 88302; J1100; J1885; J2250; J2405; J3010

== ENCOUNTER → 2023-11-25 | Outpatient (REF) | payer OTHER ==
[~2023-11-25] MED LIST changes: -LIDOCAINE 2% INJ 100 MG/5 ML SDV (FOR ANES.) As Ordered ONE; -LR 1,000 ML IV ONE; +ONDA-282; -ONDA4TAB6; -ONDANSETRON 4MG/2ML VIAL (J2405) As Ordered ONE; +OXYC1TAB23 PO; -PROPOFOL 200 MG/20 ML VIAL As Ordered ONE; -ROCURONIUM BROMIDE 50 MG/5 ML VIAL As Ordered ONE; -dexameTHASONE 4 MG/ML 1ML VIAL (J1100) As Ordered ONE
== END ==
LOC: M LAB REF 18:06
PROVIDERS: ATTEND Physician Assistant Medical
DX: R05.9 Cough, unspecified (principal)